=== PATIENT | male | born 2000 | race Caucasian/White ===

== ENCOUNTER 2020-03-07 13:35 | Emergency (ER) | payer BC ==
[~2020-03-07] VITALS: Ht 198.1 cm; Wt 97.0 kg
[~2020-03-07 13:35] MED LIST: EPIN0.3P8 IM
[2020-03-07 13:48] VITALS: BP 140/88
[2020-03-07 14:27] LABS: CLARITY,URINE SLIGHTLY CLOUDY (Clear); COLOR,URINE STRAW (Yellow); GLUCOSE, URINE NEGATIVE (Neg); KETONES,URINE NEGATIVE (Neg); LEUKOCYTE ESTERASE ,URINE TRACE (Neg); NITRITES, URINE NEGATIVE (Neg); OCCULT BLOOD,URINE NEGATIVE (Neg); PROTEIN,URINE NEGATIVE (Neg); UA COLLECTION TYPE CLN CATCH MIDSTREAM; UROBILINOGEN,URINE 0.2 E.U/dL (0.2-1.0)
[2020-03-07 14:36] LABS: MUCUS STRANDS NONE SEEN /LPF (Neg); SQUAMOUS EPITHELIAL CELL,UR FEW /LPF (FEW)
[2020-03-07 14:37] LABS: BACTERIA,URINE NONE SEEN /HPF (Neg); RBC,URINE 0-2 /HPF (0-2); WBC,URINE 0-4 /HPF (0-4)
[2020-03-07] MEDS ORDERED: metroNIDAZOLE 500mg tablet PO ONE (15:55)
[2020-03-07] MEDS ORDERED: azithromycin 250mg tablet PO ONE (15:55)
[2020-03-07] MEDS ORDERED: gentamicin inj 250 MG in normal saline 100ml IV soln 93.75 ML IV ONE (16:20)
[2020-03-07] MEDS ORDERED: gentamicin inj 250 MG in normal saline 100ml IV soln 100 ML IV ONE (16:20)
[2020-03-07] MEDS ORDERED: gentamicin 40 MG/1 ML inj IM ONE (16:45)
[2020-03-07] MEDS ORDERED: DOXY-1 PO (16:58)
== END 2020-03-07 17:16 | disposition home or self-care (01) ==
LOC: ER 13:36
DX: N48.29 Other inflammatory disorders of penis (principal)
CPT/HCPCS: 36415; 81001; 87491; 99283